=== PATIENT | female | born 1955 | race American Indian/Alaskan Native ===

== ENCOUNTER 2019-01-02 13:19 | Emergency (ER) | payer OTHER ==
[2019-01-02] MEDS ORDERED: DUONEB *Not for PRN Use IH ONE (15:12)
--- NOTE | 2019-01-02 15:13 | Emergency Department Report ---
Chief Complaint: Upper Respiratory Infection Stated Complaint: SOB/DOC ORDERED Time Seen by Provider: 01/02/19 15:08 - HPI History of Present Illness: This is a 63 y.o. female that presents to ER with SOB with increasing SOB and cough. Patient seen at [facility] several times with no improvement of symptoms. She was diagnosed with sinusitis and prescribed amoxicillin, brown, benzonatate, and eye drops. PMH: HTN - Exam Vital Signs: Vital Signs 01/02/19 14:14 Temperature 97.8 F Pulse Rate 101 H Respiratory 22 Rate Blood Pressure 134/74 O2 Sat by Pulse 94 Oximetry MSE screening note: Focused history and physical exam performed. Due to findings the following was ordered: CXR, BMP, & CBC ED Disposition for MSE Condition: Stable
[2019-01-02 15:39] LABS: Hematocrit 41.1 % (30.3-42.9); Hemoglobin 13.7 gm/dl (10.1-14.3); Mean Corpuscular HGB Conc 33 % (30-34); Mean Corpuscular Volume 88 fl (79-97); Platelet Count 360 K/mm3 (140-440); Red Cell Distribution Width 14.6 % (13.2-15.2)
[2019-01-02 16:05] LABS: Alanine Aminotransferase 14 units/L (7-56); Albumin 3.3 g/dL (3.9-5); BUN/Creatinine Ratio 10; Blood Urea Nitrogen 6 mg/dL (7-17); Calcium 9.1 mg/dL (8.4-10.2); Hemolysis Index 6
[2019-01-02 16:23] LABS: Basophils % (Manual) 0 % (0.0-1.8); Total Cells Counted 100
[2019-01-02 16:24] LABS: Anisocytosis 1+
[2019-01-02] MEDS ORDERED: DECADRON IV ONE (16:47)
[2019-01-02] MEDS ORDERED: ZOFRAN IV ONE (16:47)
[2019-01-02] MEDS ORDERED: NACL 0.9% 1000 ML 1,000 ML IV ONE (16:47)
--- NOTE | 2019-01-02 16:47 | Emergency Department Report ---
ED General Adult HPI - General Chief complaint: Upper Respiratory Infection Stated complaint: SOB/DOC ORDERED Time Seen by Provider: 01/02/19 15:08 Source: patient, family Mode of arrival: Ambulatory Limitations: No Limitations - History of Present Illness Initial comments: Patient is 63 years old female with history of hypertension. Patient presented to the ER complaining of cough, shortness of breath and congestion for the last 2 weeks. Patient stated that she she went to her primary care physician 1 week ago she was given Flonase and Afrin but symptoms have not improved. She said she went to an urgent care and she was prescribed amoxicillin that is not helping with the symptoms. Patient started to have some nausea and vomiting with her symptoms still. Patient currently denying any fever or chills. Chest pain. - Related Data Previous Rx's Medication Instructions Recorded Last Taken Type Lisinopril [Zestril TAB] 20 mg PO QDAY #30 tablet 12/18/14 Unknown Rx traMADol [Ultram 50 MG tab] 50 mg PO Q6HR PRN #14 tablet 12/18/14 Unknown Rx Cetirizine HCl [ZyrTEC] 10 mg PO QDAY #30 capsule 07/08/18 Unknown Rx Promethazine /Codeine 5 ml PO Q6H PRN #150 ml 07/08/18 Unknown Rx [Phenergan/Codeine 6.25-10 mg/5Ml] Allergies Allergy/AdvReac Type Severity Reaction Status Date / Time pineapple Allergy Dizziness Verified 12/17/14 21:05 ED Review of Systems ROS: Stated complaint: SOB/DOC ORDERED Other details as noted in HPI Comment: All other systems reviewed and negative Constitutional: denies: chills, fever ENT: congestion Respiratory: cough, shortness of breath. denies: wheezing Cardiovascular: denies: chest pain, palpitations Gastrointestinal: denies: abdominal pain, nausea, vomiting ED Past Medical Hx - Past Medical History Hx Hypertension: Yes - Social History Smoking Status: Never Smoker Substance Use Type: None - Medications Home Medications: Home Medications Medication Instructions Recorded Confirmed Last Taken Type Lisinopril [Zestril TAB] 20 mg PO QDAY #30 tablet 12/18/14 Unknown Rx traMADol [Ultram 50 MG tab] 50 mg PO Q6HR PRN #14 tablet 12/18/14 Unknown Rx Cetirizine HCl [ZyrTEC] 10 mg PO QDAY #30 capsule 07/08/18 Unknown Rx Promethazine /Codeine 5 ml PO Q6H PRN #150 ml 07/08/18 Unknown Rx [Phenergan/Codeine 6.25-10 mg/5Ml] ED Physical Exam - General Limitations: No Limitations General appearance: alert, in no apparent distress - Head Head exam: Present: atraumatic, normocephalic, normal inspection - Eye Eye exam: Present: normal appearance, PERRL - ENT ENT exam: Present: normal exam, normal orophraynx, mucous membranes moist - Neck Neck exam: Present: normal inspection. Absent: tenderness, meningismus - Respiratory Respiratory exam: Present: normal lung sounds bilaterally. Absent: respiratory distress, wheezes, rales, rhonchi, chest wall tenderness, accessory muscle use, decreased breath sounds, prolonged expiratory - Cardiovascular Cardiovascular Exam: Present: regular rate, normal rhythm, normal heart sounds - GI/Abdominal GI/Abdominal exam: Present: soft. Absent: distended, tenderness, guarding, rebound, rigid - Extremities Exam Extremities exam: Present: normal inspection, full ROM, normal capillary refill - Back Exam Back exam: Present: normal inspection, full ROM. Absent: CVA tenderness (R), CVA tenderness (L), muscle spasm, paraspinal tenderness, vertebral tenderness - Neurological Exam Neurological exam: Present: alert, oriented X3, CN II-XII intact, normal gait, reflexes normal - Skin Skin exam: Present: warm, intact, normal color ED Course Vital Signs 01/02/19 14:14 Temperature 97.8 F Pulse Rate 101 H Respiratory 22 Rate Blood Pressure 134/74 O2 Sat by Pulse 94 Oximetry ED Medical Decision Making - Lab Data Result diagrams: 01/02/19 15:29 01/02/19 15:29 - Radiology Data Radiology results: report reviewed Chest x-ray showed right middle lobe infiltrate. - Medical Decision Making Patient is 63 years old female with history of hypertension. Patient presented to the ER complaining of cough, shortness of breath and congestion for the last 2 weeks. Patient stated that she she went to her primary care physician 1 week ago she was given Flonase and Afrin but symptoms have not improved. She said she went to an urgent care and she was prescribed amoxicillin that is not helping with the symptoms. Patient started to have some nausea and vomiting with her symptoms still. Patient currently denying any fever or chills. Chest pain. Patient received 1 L of normal saline, Zofran 4 mg, 10 mg of Decadron and 1 g of Rocephin in the emergency room. Chest x-ray showed a right middle lobe infiltrate consistent with pneumonia physician Lakeisha mack 13,000. I believe patient has allergic rhinitis plus the pneumonia. I will discharge patient on Levaquin 500 mg for 7 days and advised to follow-up with her primary care physician in the next 2-3 days and to retain to the ER if symptoms have not improved. Critical care attestation.: If time is entered above; I have spent that time in minutes in the direct care of this critically ill patient, excluding procedure time. ED Disposition Clinical Impression: Pneumonia, Allergic rhinitis, Vomiting Disposition: DC- TO HOME OR SELFCARE Is pt being admited?: No Condition: Stable Instructions: Community-acquired Pneumonia (ED), Allergic Rhinitis (ED) Referrals: SYEDA JOSEPH MD [Primary Care Provider] - 3-5 Days
--- NOTE | 2019-01-02 17:17 | XRay Report ---
PROCEDURE: XR CHEST ROUTINE 2V TECHNIQUE: PA and lateral chest radiographs were obtained. HISTORY: SOB COMPARISONS: Comparison is dated July 08, 2018. FINDINGS: Heart: Normal. Mediastinum/Vessels: Normal. Lungs/Pleural space: There is increase of pulmonary interstitial prominence with a more confluent alla earance in the right middle lobe distribution along with atelectasis. No pleural effusion identified. Bony thorax: No acute osseous abnormality. IMPRESSION: Pulmonary interstitial infiltrates with atelectasis in the right middle lobe. Differentia l considerations are broad and include infectious etiologies, interstitial lung disease, and pneumoni tis or other etiologies. This document is electronically signed by Grant Purdy MD., Jan 02 2019 05:14:56 PM ET
[2019-01-02] MEDS ORDERED: ROCEPHIN/NS 1 GM/50 ML 1 GM/50 ML BAG IV ONE (18:14)
[2019-01-02 19:27] VITALS: BP 142/71
== END 2019-01-02 20:00 | disposition home or self-care (01) ==
LOC: ED 13:19
DX: J18.9 Pneumonia, unspecified organism (principal); J30.9 Allergic rhinitis, unspecified; I10 Essential (primary) hypertension; R11.10 Vomiting, unspecified; Z91.018 Allergy to other foods
CPT/HCPCS: 36415; 71046; 80053; 85007; 85025; 94640; 96361; 96365; 96375; 99284; J0696; J1100; J2405; J7030

== ENCOUNTER 2019-01-24 17:16 | Inpatient (IN) | payer OTHER ==
--- NOTE | 2019-01-24 17:49 | Emergency Department Report ---
Blank Doc - Documentation Documentation: 63 y/o female c/o of re-e,merging cough and chest ache. Cough results in post- tussive vomiting. Seen pulmonary doctor tuesday and has follow up for furhter lung evaluation.
--- NOTE | 2019-01-24 20:25 | XRay Report ---
PROCEDURE: XR CHEST ROUTINE 2V TECHNIQUE: PA and lateral chest radiographs were obtained. HISTORY: cough and post tussive vomiting COMPARISONS: Chest x-ray dated January 02, 2019. FINDINGS: There is prominence of the interstitial markings in both lungs with peribronchial thickening that is less marked when compared with the previous study. There are extensive been interval resolution of the previously demonstrated pulmonary consolidation i n the right lung base. There has been interval decrease in the pulmonary consolidation in the left vijay ng apex. There is no evidence of pneumothorax or pleural fluid collection. The cardiac silhouette appears to be normal size. The thoracic aorta is tortuous. The bony structures are notable for dextrocurvature of the thoracic spine. IMPRESSION: 1. Prominence of the interstitial markings with peribronchial thickening that is less marked compared to the previous study. 2. Appearance of interval resolution of pulmonary consolidation right lung base and interval decrease in pulmonary consolidation left lung apex. If further imaging is required, CT chest may be helpful for further evaluation. This document is electronically signed by Laly Sommer MD., January 24 2019 08:23:27 PM ET
[2019-01-24] MEDS ORDERED: NACL 0.9% 1000 ML IV ONE (20:56)
[2019-01-24] MEDS ORDERED: ZOFRAN IV ONE (20:58)
[2019-01-24] MEDS ORDERED: PROVENTIL IH ONE (20:58)
[2019-01-24] MEDS ORDERED: SOLU-Medrol IV ONE (20:58)
[2019-01-24] MEDS ORDERED: ATROVENT IH ONE (20:58)
[2019-01-24] MEDS ORDERED: ZITHROMAX 500 MG in NACL 0.9% 250ML 250 ML IV SCH (21:00)
[2019-01-24] MEDS ORDERED: ROCEPHIN/NS 2 GM/100 ML 2 GM/100 ML BAG IV SCH (21:00)
--- NOTE | 2019-01-24 21:11 | Emergency Department Report ---
ED General Adult HPI - General Chief complaint: Dyspnea/Respdistress Stated complaint: VOMITING/N/V/YOHAN Time Seen by Provider: 01/24/19 17:47 Source: patient, RN notes reviewed, old records reviewed Mode of arrival: Wheelchair Limitations: Physical Limitation - History of Present Illness Initial comments: Primary care Dr.: Dr. Jose This is a 63-year-old female. The patient is not known to this provider previously. She has a history of community-acquired pneumonia, recently diagnosed at this hospital last month, prescribed Levaquin, and she endorses compliance with Levaquin therapy. She reports that she does not smoke. She presents to the emergency room today with a complaint of cough, wheezing, shortness of breath, mucus production, nausea, vomiting, posttussive emesis. She reports that she felt around 80% better after her antibiotic therapy, but her symptoms never went away. Now, her cough, wheezing and shortness of breath are getting worse. They're worse with physical exertion, and eating, and decreased with rest. She makes no complaint of headache or neck pain, sore throat, ocular pain or discomfort, lower abdominal pain, urinary symptoms. Has nonspecific muscular discomfort. In the emergency room, she was treated supportively, and her symptoms somewhat improved. However, she was found to be hypoxic on room air, and an arterial blood gas on room air demonstrated hypoxemic respiratory failure. The patient denies DVT, pulmonary embolus risk factors. The patient was found to be tachycardic and tachypneic, and therefore met systemic inflammatory response syndrome criteria. We recommended admission for supportive care, oxygenation, and appropriate antibiotics, although this point in time, suspect bronchitis. The patient was amenable to this plan of care. Discussed results with the patient and family. The hospital physician, Dr. Mc, we'll get the patient to the medical service for new onset hypoxemic respiratory failure, and systemic inflammatory response syndrome. -: Gradual, week(s) Severity scale (0 -10): 0 Consistency: constant Improves with: rest Worsens with: movement - Related Data Previous Rx's Medication Instructions Recorded Last Taken Type Lisinopril [Zestril TAB] 20 mg PO QDAY #30 tablet 12/18/14 Unknown Rx traMADol [Ultram 50 MG tab] 50 mg PO Q6HR PRN #14 tablet 04/29/15 Unknown Rx Cetirizine HCl [ZyrTEC] 10 mg PO QDAY #30 capsule 07/08/18 Unknown Rx Promethazine /Codeine 5 ml PO Q6H PRN #150 ml 07/08/18 Unknown Rx [Phenergan/Codeine 6.25-10 mg/5Ml] Ondansetron [Zofran Odt] 4 mg PO Q8HR PRN #14 tab.rapdis 01/02/19 Unknown Rx Prednisone [predniSONE 10 mg 10 mg PO .TAPER #1 tab.ds.pk 01/02/19 Unknown Rx (6-Day Pack, 21 Tabs)] levoFLOXacin [Levaquin TAB] 500 mg PO QDAY #7 tablet 01/02/19 Unknown Rx Allergies Allergy/AdvReac Type Severity Reaction Status Date / Time pineapple Allergy Dizziness Verified 01/24/19 17:19 ED Review of Systems ROS: Stated complaint: VOMITING/N/V/YOHAN Other details as noted in HPI Constitutional: malaise, weakness Eyes: denies: eye discharge ENT: congestion Respiratory: cough, shortness of breath, SOB with exertion, SOB at rest, wheezing Cardiovascular: denies: chest pain, syncope Gastrointestinal: nausea, vomiting Genitourinary: denies: dysuria Musculoskeletal: arthralgia, myalgia Skin: denies: lesions Neurological: weakness ED Past Medical Hx - Past Medical History Hx Hypertension: Yes - Surgical History Past Surgical History?: No - Social History Smoking Status: Never Smoker Substance Use Type: None - Medications Home Medications: Home Medications Medication Instructions Recorded Confirmed Last Taken Type Lisinopril [Zestril TAB] 20 mg PO QDAY #30 tablet 12/18/14 Unknown Rx traMADol [Ultram 50 MG tab] 50 mg PO Q6HR PRN #14 tablet 12/18/14 Unknown Rx Cetirizine HCl [ZyrTEC] 10 mg PO QDAY #30 capsule 07/08/18 Unknown Rx Promethazine /Codeine 5 ml PO Q6H PRN #150 ml 07/08/18 Unknown Rx [Phenergan/Codeine 6.25-10 mg/5Ml] Ondansetron [Zofran Odt] 4 mg PO Q8HR PRN #14 tab.rapdis 01/02/19 Unknown Rx Prednisone [predniSONE 10 mg 10 mg PO .TAPER #1 tab.ds.pk 01/02/19 Unknown Rx (6-Day Pack, 21 Tabs)] levoFLOXacin [Levaquin TAB] 500 mg PO QDAY #7 tablet 01/02/19 Unknown Rx ED Physical Exam - General Limitations: No Limitations General appearance: alert, anxious, in distress, obese - Head Head exam: Present: atraumatic, normocephalic - Eye Eye exam: Present: normal appearance, EOMI. Absent: nystagmus - ENT ENT exam: Present: normal exam, normal orophraynx, mucous membranes moist, normal external ear exam - Neck Neck exam: Present: normal inspection, full ROM. Absent: tenderness, meningismus - Respiratory Respiratory exam: Present: respiratory distress, wheezes, rhonchi - Cardiovascular Cardiovascular Exam: Present: normal rhythm, tachycardia, normal heart sounds. Absent: systolic murmur, diastolic murmur, rubs, gallop - GI/Abdominal GI/Abdominal exam: Present: soft. Absent: distended, tenderness, guarding, rebound, rigid, pulsatile mass - Extremities Exam Extremities exam: Present: normal inspection, full ROM, other (2+ pulses noted in the bilateral upper, lower extremities. Compartments soft. No long bony tenderness. The pelvis is stable.). Absent: pedal edema, calf tenderness - Back Exam Back exam: Present: normal inspection, full ROM. Absent: tenderness, CVA tenderness (R), CVA tenderness (L), paraspinal tenderness, vertebral tenderness - Neurological Exam Neurological exam: Present: alert, oriented X3, other (Extraocular movements intact. Tongue midline. No facial droop. Facial sensation intact to light touch in the V1, V2, V3 distribution bilaterally. 5 and 5 strength in 4 extremities.. Sensation is intact to light touch in 4 extremities.). Absent: motor sensory deficit - Psychiatric Psychiatric exam: Present: normal affect, normal mood - Skin Skin exam: Present: warm, dry, intact, normal color. Absent: rash ED Course Vital Signs 01/24/19 01/24/19 01/24/19 17:47 20:40 21:27 Temperature 98.7 F 98 F Pulse Rate 108 H 115 H Pulse Rate [ 109 H Posterior Bilateral Throughout] Respiratory 16 28 H Rate Respiratory 22 Rate [Posterior Bilateral Throughout] Blood Pressure 129/72 174/114 [Left] O2 Sat by Pulse 94 88 Oximetry ED Medical Decision Making - Lab Data Result diagrams: 01/24/19 21:10 01/24/19 21:10 Vital Signs 01/24/19 01/24/19 17:47 20:40 Temperature 98.7 F 98 F Pulse Rate 108 H 115 H Respiratory 16 28 H Rate Blood Pressure 129/72 174/114 [Left] O2 Sat by Pulse 94 88 Oximetry - EKG Data -: EKG Interpreted by [place] EKG shows normal: sinus rhythm Rate: tachycardia - EKG Data 01/24/19 22:00 This is a sinus tachycardia, 104 bpm, normal axis, QTC prolonged, not having chest pain, abnormal EKG, this EKG is not consistent with ST elevation myocardial infarction. - Radiology Data Radiology results: report reviewed, image reviewed Print Report Referring Physician: ALEXYS CARRASCO Patient Name: ADA GATES Date of : 1955 Sex: Female Report Date: 2019-01-24 Report Status: [place] [address] XRay Report Signed Patient: ADA GATES MR# : [id number] : 1955 Acct:[id number] Age/Sex: 63 / F ADM Date: 01/24/19 Loc: ED Attending Dr: Ordering Physician: SACHIN BUSBY Date of Service: 01/24/19 Procedure(s): XR chest routine 2V Accession Number(s): [id number] cc: SACHIN BUSBY Fluoro Time In Minutes: PROCEDURE: XR CHEST ROUTINE 2V TECHNIQUE: PA and lateral chest radiographs were obtained. HISTORY: cough and post tussive vomiting COMPARISONS: Chest x-ray dated January 02, 2019. FINDINGS: There is prominence of the interstitial markings in both lungs with peribronchial thickening that is less marked when compared with the previous study. There are extensive been interval resolution of the previously demonstrated pulmonary consolidation in the right lung base. There has been interval decrease in the pulmonary consolidation in the left lung apex. There is no evidence of pneumothorax or pleural fluid collection. The cardiac silhouette appears to be normal size. The thoracic aorta is tortuous. The bony structures are notable for dextrocurvature of the thoracic spine. IMPRESSION: 1. Prominence of the interstitial markings with peribronchial thickening that is less marked compared to the previous study. 2. Appearance of interval resolution of pulmonary consolidation right lung base and interval decrease in pulmonary consolidation left lung apex. If further imaging is required, CT chest may be helpful for further evaluation. This document is electronically signed by Laly Sommer MD., January 24 2019 08:23:27 PM ET Transcribed By: ED Dictated By: LALY SOMMER MD Electronically Authenticated By: LALY SOMMER MD Signed Date/Time: 01/24/192024 - Medical Decision Making Differential diagnosis, including but not limited to: Pneumonia, bronchitis, respiratory failure Assessment and plan: 63-year-old female, no pulmonary embolus or DVT risk factors, low risk by well's criteria, with systemic inflammatory response syndrome, and hypoxemic respiratory failure, most likely secondary to bronchitis. Patient will be treated according to the sepsis pathway, with appropriate IV fluids, antibiotics, and supplemental oxygen. She is clinically improved at this point in time. She is amenable to hospitalization. Critical care attestation.: If time is entered above; I have spent that time in minutes in the direct care of this critically ill patient, excluding procedure time. ED Disposition Clinical Impression: SIRS (systemic inflammatory response syndrome), Acute hypoxemic respiratory failure Disposition: -09 OP ADMIT IP TO THIS HOSP Is pt being admited?: Yes Condition: Good Referrals: SYEDA JOSEPH MD [Primary Care Provider] - 3-5 Days
[2019-01-24 21:34] LABS: Hematocrit 38.8 % (30.3-42.9); Hemoglobin 12.9 gm/dl (10.1-14.3); Mean Corpuscular HGB Conc 33 % (30-34); Mean Corpuscular Volume 88 fl (79-97); Platelet Count 330 K/mm3 (140-440); Red Blood Count 4.43 M/mm3 (3.65-5.03); Red Cell Distribution Width 15.4 % (13.2-15.2)
[2019-01-24 21:45] LABS: INR 1.05 (0.87-1.13)
[2019-01-24 21:46] LABS: Partial Thromboplastin Time 31.5 Sec. (24.2-36.6)
[2019-01-24 21:48] LABS: Alanine Aminotransferase 12 units/L (7-56); Albumin 3.4 g/dL (3.9-5); BUN/Creatinine Ratio 16; Blood Urea Nitrogen 13 mg/dL (7-17); Calcium 8.9 mg/dL (8.4-10.2)
[2019-01-24] MEDS ORDERED: K-DUR PO ONE (21:53)
[2019-01-24 22:12] LABS: RBC Morphology Normal; Total Cells Counted 100
[2019-01-24] MEDS: KCL 10MEQ/100ML 10 MEQ/100 ML BAG IV SCH (22:13)
[2019-01-24] MEDS ORDERED: TYLENOL PO PRN (22:35)
[2019-01-24] MEDS ORDERED: ZOFRAN IV PRN (22:35)
[2019-01-24] MEDS ORDERED: SODIUM CHLORIDE FLUSH SYRINGE 10 ML IV PRN (22:35)
--- NOTE | 2019-01-24 22:46 | History and Physical Report ---
History of Present Illness Date of examination: 01/24/19 History of present illness: 63 -year-old woman with hypertension comes to the emergency room with complaints of cough or shortness of breath 3 months. She's had 2 rounds of antibiotics, placed on steroids and given inhalers, her symptoms improved slightly. Over the last 4 days coughis Productive of yellow phlegm, also had rhinorrhea. He saw a cigarette lighter repairer on Tuesday, he sounds as if she is scheduled to have PFTs done. 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 Status post recent treatment for pneumonia Review of systems Constitutional: no weight loss, chills, fever Ears, eyes, nose, mouth and throat: no nasal congestion, no nasal discharge, no sinus pressure, no vision change, no red eye. Neck: No neck pain or rigidity. Cardiovascular: no palpitations, chest pain Respiratory:+ cough, shortness of breath Gastrointestinal: no hematochezia, abdominal pain Genitourinary : no frequency , no hematuria Musculoskeletal: no joint swelling or muscle ache Integumentary: no rash, no pruritis Neurological: no parathesias, no focal weakness Endocrine: no cold or heat intolerance, no polyuria or polydipsia Hematologic/Lymphatic: no easy bruising, no easy bleeding, no gland swelling Allergic/Immunologic: no urticaria, no angioedema. PAST MEDICAL HISTORY:hypertension PAST SURGICAL HISTORY: None SOCIAL HISTORY: Denies alcohol, drugs, tobacco FAMILY HISTORY: Hypertension Medications and Allergies Allergies Allergy/AdvReac Type Severity Reaction Status Date / Time pineapple Allergy Dizziness Verified 01/24/19 17:19 Home Medications Medication Instructions Recorded Confirmed Last Taken Type Ondansetron [Zofran Odt] 4 mg PO Q8HR PRN #14 tab.rapdis 01/02/19 01/24/19 Unknown Rx ALBUTEROL Inhaler (OR & NICU) 1 puff IH Q8HR PRN 01/24/19 01/24/19 Unknown History [ProAir HFA Inhaler] Benzonatate [Tessalon Perles] 100 mg PO Q8HR PRN 01/24/19 01/24/19 Unknown History Montelukast [Singulair] 1 tab PO HS 01/24/19 01/24/19 Unknown History Omeprazole 20 mg PO DAILY 01/24/19 01/24/19 Unknown History amLODIPine [Norvasc] 5 mg PO DAILY 01/24/19 01/24/19 Unknown History Active Meds: Active Medications Acetaminophen (Tylenol) 650 mg PO Q4H PRN PRN Reason: Pain MILD(1-3)/Fever >100.5/PACE Albuterol/Ipratropium (Duoneb *Not For Prn Use*) 1 ampul IH Q6HRT ALLEN Enoxaparin Sodium (Lovenox) 30 mg SUB-Q QDAY ALLEN Potassium Chloride (Kcl 10meq/100ml) 10 meq in 100 mls @ 100 mls/hr IV Q1H ALLEN Stop: 01/24/19 23:59 Last Admin: 01/24/19 22:13 Dose: 100 mls/hr Documented by: Methylprednisolone Sodium Succinate (Solu-Medrol) 125 mg IV Q6HR ALLEN Ondansetron HCl (Zofran) 4 mg IV Q8H PRN PRN Reason: Nausea And Vomiting Sodium Chloride (Sodium Chloride Flush Syringe 10 Ml) 10 ml IV BID ALLEN Sodium Chloride (Sodium Chloride Flush Syringe 10 Ml) 10 ml IV PRN PRN PRN Reason: LINE FLUSH Exam - Physical Exam Narrative exam: General Apperance: The patient lying in bed, breathing comfortable HEENT: Normocephalic, atraumatic. Pupils equally round and reactive to light, EOMI, no sclericterus or JVD or thyromegaly or nodule. , no carotid bruit, mucous membranes moist, no exudate or erythema Heart: S1-S2, regular is rhythm Lungs:decrease breath sounds bilaterally, breathing comfortable Abdomen: Positive bowel sounds, soft, nontender, nondistended, no organomegaly Extremities: No edema cyanosis clubbing Skin: no rash, nodule, warm and dry Neuro: cranial nerves 2-12 intact, speech is fluent, motor/sensory intact - Constitutional Vitals: Temp Pulse Resp BP Pulse Ox 98 F 115 H 24 174/114 88 01/24/19 20:40 01/24/19 21:41 01/24/19 21:41 01/24/19 20:40 01/24/19 20:40 Results - Labs CBC & Chem 7: 01/24/19 21:10 01/24/19 21:10 Labs: Abnormal lab results 0601/24/19 01/24/19 Range/Units 21:10 21:10 21:28 RDW 15.4 H (13.2-15.2) % Monocytes % (Manual) 8.0 H (0.0-7.3) % Eosinophils % (Manual) 22.0 H (0.0-4.3) % Eosinophils # (Manual) 1.9 H (0.0-0.4) K/mm3 POC ABG pO2 56 L (80-105) Potassium 3.4 L (3.6-5.0) mmol/L Glucose 109 H (65-100) mg/dL Alkaline Phosphatase 205 H (35-129) units/L Albumin 3.4 L (3.9-5) g/dL - Imaging and Cardiology Chest x-ray: report reviewed Assessment and Plan Assessment Acute bronchitis with hypoxemia Hypertension Plan Start high-dose steroids, nebulization treatments, IV Levaquin Consult pulmonary, add tessalon perles Continue appropriate out patient medications DVT prophalaxis
[2019-01-24] MEDS ORDERED: NACL 0.9% 250ML 500 ML ONE (23:20)
[2019-01-24] MEDS ORDERED: KCL 10MEQ/100ML 10 MEQ/100 ML BAG IV ONE (23:35)
[2019-01-25] MEDS ORDERED: SOLU-Medrol IV SCH
[2019-01-25] MEDS: KCL 10MEQ/100ML 10 MEQ/100 ML BAG IV SCH (01:00)
[2019-01-25] MEDS: DUONEB *Not for PRN Use IH SCH ×4 (01:58→20:05)
[2019-01-25] MEDS: SOLU-Medrol IV SCH ×4 (02:41→23:20)
[2019-01-25] MEDS: TESSALON PERLES PO SCH ×3 (06:06→23:20)
[2019-01-25 06:13] LABS: Basophils % (Auto) 0.5 % (0.0-1.8); Eosinophils % (Auto) 0.4 % (0.0-4.3); Hematocrit 37.1 % (30.3-42.9); Hemoglobin 12.6 gm/dl (10.1-14.3); Lymphocytes # (Auto) 0.5 K/mm3 (1.2-5.4); Lymphocytes % (Auto) 8.7 % (13.4-35.0); Mean Corpuscular HGB Conc 34 % (30-34); Mean Corpuscular Volume 88 fl (79-97); Monocytes # (Auto) 0.1 K/mm3 (0.0-0.8); Monocytes % (Auto) 0.9 % (0.0-7.3); Platelet Count 292 K/mm3 (140-440); Red Blood Count 4.24 M/mm3 (3.65-5.03); Red Cell Distribution Width 15.5 % (13.2-15.2)
[2019-01-25 06:38] LABS: BUN/Creatinine Ratio 13; Blood Urea Nitrogen 9 mg/dL (7-17); Calcium 8.7 mg/dL (8.4-10.2); Hemolysis Index 2
[2019-01-25 08:37] LABS: Bilirubin,Urine NEG (Negative); Blood,Urine NEG (Negative); Color,Urine Yellow (Yellow); Mucus,Urine FEW /HPF; Protein,Urine <15 mg/dL mg/dL (Negative); Urobilinogen,Urine < 2.0 mg/dL (<2.0); WBC,Urine < 1.0 /HPF (0.0-6.0)
[2019-01-25] MEDS ORDERED: LOVENOX SUB-Q SCH (10:00)
[2019-01-25] MEDS ORDERED: NON-FORMULARY (Omeprazole [Omeprazole] 20 MG) PO SCH (10:00)
[2019-01-25] MEDS ORDERED: ATIVAN IV ONE (10:00)
[2019-01-25] MEDS: NORVASC PO SCH (11:10)
[2019-01-25] MEDS: LOVENOX SUB-Q SCH (11:10)
[2019-01-25] MEDS: PROTONIX PO SCH (11:11)
[2019-01-25] MEDS: SODIUM CHLORIDE FLUSH SYRINGE 10 ML IV SCH ×2 (11:12→23:21)
--- NOTE | 2019-01-25 12:05 | Consultation ---
History of Present Illness Consult date: 01/25/19 Requesting physician: HARJINDER GIBSON Reason for consult: hypoxemia History of present illness: 63 y/o female, not currently in room as she is down for CT of chest admitted with cough and persistent shortness of breath. Daughters in room state that shortness of breath is only present with excessive coughing, and coughing has been going on for several weeks. has seen several docs and thought this could be allergy related so started on antihistamine and nasal steroids with minimal to no improvement. Sent here yesterday by urgent care. Room air ABG showed hypoxemia, mild so admitted. Only allergy is pineapple. Never a smoker. Medications and Allergies Allergies Allergy/AdvReac Type Severity Reaction Status Date / Time pineapple Allergy Dizziness Verified 01/24/19 17:19 Home Medications Medication Instructions Recorded Confirmed Last Taken Type Ondansetron [Zofran ODT TAB] 4 mg PO Q8HR PRN #14 tab.rapdis 01/02/19 01/24/19 Unknown Rx Benzonatate [Tessalon Perles] 100 mg PO Q8HR PRN 01/24/19 01/24/19 Unknown History ALBUTEROL Inhaler (OR & NICU) 1 puff IH Q8HR PRN #1 inha 01/26/19 Unknown Rx [ProAir HFA Inhaler] Acetaminophen [Acetaminophen TAB] 325 mg PO Q4H PRN tablet 01/26/19 Unknown Rx Ipratropium/Albuterol Sulfate 1 ampul IH Q4H PRN #1 ampul.neb 01/26/19 Unknown Rx [DUONEB *Not for PRN Use*] Montelukast [Singulair] 10 mg PO HS #30 tablet 01/26/19 Unknown Rx Pantoprazole [Protonix TAB] 40 mg PO QDAY #30 tablet.dr 01/26/19 Unknown Rx amLODIPine [Norvasc] 5 mg PO DAILY #30 01/26/19 01/24/19 Unknown Rx cefUROXime [Ceftin] 500 mg PO BID #10 tablet 01/26/19 Unknown Rx methylPREDNISolone [Medrol 4MG 1 dose PO DAILY #1 tab.ds.pk 01/26/19 Unknown Rx DOSEPAK (21 tabs)] Active Meds: Active Medications Acetaminophen (Tylenol) 650 mg PO Q4H PRN PRN Reason: Pain MILD(1-3)/Fever >100.5/PACE Last Admin: 01/25/19 01:28 Dose: 650 mg Documented by: Albuterol/Ipratropium (Duoneb *Not For Prn Use*) 1 ampul IH Q6HRT [facility] Last Admin: 01/25/19 10:06 Dose: 1 ampul Documented by: Amlodipine Besylate (Norvasc) 5 mg PO DAILY [facility] Last Admin: 01/25/19 11:10 Dose: 5 mg Documented by: Benzonatate (Tessalon Perles) 100 mg PO Q8HR [facility] Last Admin: 01/25/19 06:06 Dose: 100 mg Documented by: Enoxaparin Sodium (Lovenox) 40 mg SUB-Q QDAY@1000 [facility] Last Admin: 01/25/19 11:10 Dose: 40 mg Documented by: Methylprednisolone Sodium Succinate (Solu-Medrol) 125 mg IV Q6H [facility] Last Admin: 01/25/19 11:11 Dose: 125 mg Documented by: Montelukast Sodium (Singulair) 10 mg PO HS [facility] Ondansetron HCl (Zofran) 4 mg IV Q8H PRN PRN Reason: Nausea And Vomiting Pantoprazole Sodium (Protonix) 20 mg PO QDAY [facility] Last Admin: 01/25/19 11:11 Dose: 20 mg Documented by: Sodium Chloride (Sodium Chloride Flush Syringe 10 Ml) 10 ml IV BID [facility] Last Admin: 01/25/19 11:12 Dose: 10 ml Documented by: Sodium Chloride (Sodium Chloride Flush Syringe 10 Ml) 10 ml IV PRN PRN PRN Reason: LINE FLUSH Physical Examination Vital signs: Vital Signs Temp Pulse Resp BP Pulse Ox 98.7 F 108 H 16 129/72 94 01/24/19 17:47 01/24/19 17:47 01/24/19 17:47 01/24/19 17:47 01/24/19 17:47 General appearance: no acute distress, alert Eyes: non-icteric ENT: oropharynx moist Effort: normal Ascultation: Bilateral: clear Percussion: Bilateral: not dull Tactile fremitus: Bilateral: normal Cardiovascular: regular rate and rhythm Gastrointestinal: normoactive bowel sounds, non-tender Extremities: no edema, pink and warm, pulses normal Results - Laboratory Findings CBC and BMP: 01/26/19 06:57 01/26/19 06:57 ABG POC ABG pH 7.373 (7.35-7.45) 01/24/19 21:28 POC ABG pCO2 44.4 (35-45) 01/24/19 21:28 POC ABG pO2 56 (80-105) L 01/24/19 21:28 POC ABG HCO3 25.9 (22-26 mml/L) 01/24/19 21:28 POC ABG Total CO2 27 (23-27mmol/L) 01/24/19 21:28 POC ABG O2 Sat 88 01/24/19 21:28 PT/INR, D-dimer PT 14.4 Sec. (12.2-14.9) 01/24/19 21:10 INR 1.05 (0.87-1.13) 01/24/19 21:10 Abnormal lab findings: Abnormal Labs 01/24/19 01/24/19 01/24/19 21:10 21:10 21:28 RDW 15.4 H Lymph % (Auto) Lymph # Seg Neutrophils % Monocytes % (Manual) 8.0 H Eosinophils % (Manual) 22.0 H Eosinophils # (Manual) 1.9 H POC ABG pO2 56 L Potassium 3.4 L Glucose 109 H Alkaline Phosphatase 205 H Albumin 3.4 L 01/25/19 01/25/19 05:29 05:29 RDW 15.5 H Lymph % (Auto) 8.7 L Lymph # 0.5 L Seg Neutrophils % 89.5 H Monocytes % (Manual) Eosinophils % (Manual) Eosinophils # (Manual) POC ABG pO2 Potassium Glucose 168 H Alkaline Phosphatase Albumin Assessment and Plan 1. Follow up CT 2. Need to obtain neurology consult and possible CT of head vs CT of dedicated sinuses. Based upon history in the room, lots of sinus congestion and drainage with headache and eyelid swelling. Would be concerned about possible blockage. Neurology might could tell us if CT vs MRI is better based upon her symptoms 3. Will examine once back from CT
--- NOTE | 2019-01-25 13:55 | Cat Scan Report ---
PROCEDURE: CT CHEST WO/W CON TECHNIQUE: Computerized axial tomography of the chest was performed before and after the IV injectio n of iodinated nonionic contrast. CT DOSE LENGTH PRODUCT: 1579.1 mGycm HISTORY: sob, cough, ?pneumonia COMPARISONS: None . FINDINGS: Heart and pericardium: Normal. Thoracic aorta: Normal. Pulmonary vasculature: Normal. Lymph nodes: No enlarged thoracic lymph nodes. Lungs: Mild diffuse peribronchial thickening. No focal consolidation. Minimal ground glass opacities at the bilateral lung bases, likely reflective of atelectasis. Pleural space: No effusion, thickening, or pneumothorax. Musculoskeletal structures: No significant abnormality. Upper abdominal structures: No significant abnormality. IMPRESSION: Mild diffuse peribronchial thickening, which may represent bronchitis. Minimal groundglass opacities at the bilateral lung bases that may reflect atelectasis, inflammation, or infection. This document is electronically signed by Karyn Escamilla MD., January 25 2019 01:52:49 PM ET
--- NOTE | 2019-01-25 14:51 | Progress Note ---
Assessment and Plan Assessment and plan: Patient is a 63 yo woman with a history of hypertension who presented to [facility] ED with sob, cough. * CT chest with and without contrast IMPRESSION: Mild diffuse peribronchial thickening, which may represent bronchitis. Minimal groundglass opacities at the bilateral lung bases that may reflect atelectasis, inflammation, or infection. Acute hypoxic respiratory failure, pO2 was only 56: treat with O2, CT chest done using IV ativan for sedation because patient is extremely claustrophobic Sepsis with Acute bronchitis as evident by HR 115, RR 24 poa: treat with ABX, nebs, iv steroids and follow cultures Accelerated hypertension with Urgency: iv hydralazine prn, continue norvasc, low salt diet Hypokalemia: replete and monitor closely Sinus Disorder/Eyelid swelling: CT facial bones without contrast would be the best choice here as patient is extremely claustrophobic and i had to pre- medicate with Ativan 1mg IV x 1; therefore, closed MRI would not be best; would wait to do CT face as patient just had sedation for the CT chest, so treat symptomatically for now DVT ppx reviewed on sq Lovenox Disposition: continue inpatient care, anticipate d/c in 1-3 days, once hypoxic resolves full code CCT 32 minutes History Interval history: Patient was seen and examined. Follow-up on current diagnosis Pneumonia, SOB is less. Overnight uneventful. Patient denies any chest pain, nausea/vomiting or severe headaches. Imaging, nursing note, chart, labs and old chart reviewed. Discussed with patient. Hospitalist Physical - Physical exam Narrative exam: Gen: WDWN, NAD, Awake, Alert, Orientated HEENT: NCAT, EOMI, PERRL, OP Clear Neck: supple, no adenopathy, no thyromegaly, no JVD CVS/Heart: RRR, normal S1S2, pulses present bilaterally Chest/Lungs: bibasilar crackles, Symmetrical chest expansion, good air entry bilaterally GI/Abdomen: soft, NTND, good bowel sounds, no guarding or rebound /Bladder: no suprapubic tenderness, no CVA or paraspinal tenderness Extermity/Skin: no c/c/e, no obvious rash MSK: FROM x 4 Neuro: CN 2-12 grossly intact, no new focal deficits Psych: calm - Constitutional Vitals: Temp Pulse Resp BP Pulse Ox 98.4 F 94 H 20 141/86 92 01/25/19 12:39 01/25/19 12:39 01/25/19 12:39 01/25/19 12:39 01/25/19 12:39 Results - Labs CBC & Chem 7: 01/25/19 05:29 01/25/19 05:29 Labs: Laboratory Last Values WBC 6.0 K/mm3 (4.5-11.0) 01/25/19 05:29 RBC 4.24 M/mm3 (3.65-5.03) 01/25/19 05:29 Hgb 12.6 gm/dl (10.1-14.3) 01/25/19 05:29 Hct 37.1 % (30.3-42.9) 01/25/19 05:29 MCV 88 fl (79-97) 01/25/19 05:29 MCH 30 pg (28-32) 01/25/19 05:29 MCHC 34 % (30-34) 01/25/19 05:29 RDW 15.5 % (13.2-15.2) H 01/25/19 05:29 Plt Count 292 K/mm3 (140-440) 01/25/19 05:29 Lymph % (Auto) 8.7 % (13.4-35.0) L 01/25/19 05:29 [place] % (Auto) 0.9 % (0.0-7.3) 01/25/19 05:29 Eos % (Auto) 0.4 % (0.0-4.3) 01/25/19 05:29 Baso % (Auto) 0.5 % (0.0-1.8) 01/25/19 05:29 Lymph # 0.5 K/mm3 (1.2-5.4) L 01/25/19 05:29 [place] # 0.1 K/mm3 (0.0-0.8) 01/25/19 05:29 Eos # 0.0 K/mm3 (0.0-0.4) 01/25/19 05:29 Baso # 0.0 K/mm3 (0.0-0.1) 01/25/19 05:29 Add Manual Diff Complete 01/24/19 21:10 Total Counted 100 01/24/19 21:10 Seg Neutrophils % 89.5 % (40.0-70.0) H 01/25/19 05:29 Seg Neuts % (Manual) 52.0 % (40.0-70.0) 01/24/19 21:10 0 % 01/24/19 21:10 17.0 % (13.4-35.0) 01/24/19 21:10 Reactive Lymphs % (Man) 0 % 01/24/19 21:10 8.0 % (0.0-7.3) H 01/24/19 21:10 22.0 % (0.0-4.3) H 01/24/19 21:10 1.0 % (0.0-1.8) 01/24/19 21:10 0 % 01/24/19 21:10 0 % 01/24/19 21:10 0 % 01/24/19 21:10 0 % 01/24/19 21:10 Nucleated RBC % Not Reportable 01/24/19 21:10 Seg Neutrophils # 5.4 K/mm3 (1.8-7.7) 01/25/19 05:29 Seg Neutrophils # Man 4.4 K/mm3 (1.8-7.7) 01/24/19 21:10 Band Neutrophils # 0.0 K/mm3 01/24/19 21:10 1.4 K/mm3 (1.2-5.4) 01/24/19 21:10 Abs React Lymphs (Man) 0.0 K/mm3 01/24/19 21:10 0.7 K/mm3 (0.0-0.8) 01/24/19 21:10 1.9 K/mm3 (0.0-0.4) H 01/24/19 21:10 0.1 K/mm3 (0.0-0.1) 01/24/19 21:10 0.0 K/mm3 01/24/19 21:10 0.0 K/mm3 01/24/19 21:10 0.0 K/mm3 01/24/19 21:10 Blast Cells # 0.0 K/mm3 01/24/19 21:10 WBC Morphology Not Reportable 01/24/19 21:10 Hypersegmented Neuts Not Reportable 01/24/19 21:10 Hyposegmented Neuts Not Reportable 01/24/19 21:10 Hypogranular Neuts Not Reportable 01/24/19 21:10 Not Reportable 01/24/19 21:10 Not Reportable 01/24/19 21:10 Not Reportable 01/24/19 21:10 Not Reportable 01/24/19 21:10 Not Reportable 01/24/19 21:10 Not Reportable 01/24/19 21:10 Not Reportable 01/24/19 21:10 Not Reportable 01/24/19 21:10 Plt Clumps, EDTA Not Reportable 01/24/19 21:10 Not Reportable 01/24/19 21:10 Not Reportable 01/24/19 21:10 Not Reportable 01/24/19 21:10 Plt Morphology Comment Not Reportable 01/24/19 21:10 RBC Morphology Normal 01/24/19 21:10 Dimorphic RBCs Not Reportable 01/24/19 21:10 Not Reportable 01/24/19 21:10 Not Reportable 01/24/19 21:10 Not Reportable 01/24/19 21:10 Not Reportable 01/24/19 21:10 Not Reportable 01/24/19 21:10 Not Reportable 01/24/19 21:10 Not Reportable 01/24/19 21:10 Not Reportable 01/24/19 21:10 Not Reportable 01/24/19 21:10 Not Reportable 01/24/19 21:10 Not Reportable 01/24/19 21:10 Not Reportable 01/24/19 21:10 Not Reportable 01/24/19 21:10 Not Reportable 01/24/19 21:10 Not Reportable 01/24/19 21:10 Not Reportable 01/24/19 21:10 Not Reportable 01/24/19 21:10 Not Reportable 01/24/19 21:10 Not Reportable 01/24/19 21:10 Acanthocytes (Spur) Not Reportable 01/24/19 21:10 Rouleaux Not Reportable 01/24/19 21:10 Not Reportable 01/24/19 21:10 Not Reportable 01/24/19 21:10 Not Reportable 01/24/19 21:10 Not Reportable 01/24/19 21:10 Hem Pathologist Commnt No 01/24/19 21:10 PT 14.4 Sec. (12.2-14.9) 01/24/19 21:10 INR 1.05 (0.87-1.13) 01/24/19 21:10 APTT 31.5 Sec. (24.2-36.6) 01/24/19 21:10 POC ABG pH 7.373 (7.35-7.45) 01/24/19 21:28 POC ABG pCO2 44.4 (35-45) 01/24/19 21:28 POC ABG pO2 56 (80-105) L 01/24/19 21:28 POC ABG HCO3 25.9 (22-26 mml/L) 01/24/19 21:28 POC ABG Total CO2 27 (23-27mmol/L) 01/24/19 21:28 POC ABG O2 Sat 88 01/24/19 21:28 POC ABG Base Excess 1 ((-2) - (+3)mmol/L) 01/24/19 21:28 21 % 01/24/19 21:28 Sodium 143 mmol/L (137-145) 01/25/19 05:29 Potassium 3.8 mmol/L (3.6-5.0) 01/25/19 05:29 Chloride 106.8 mmol/L (98-107) 01/25/19 05:29 Carbon Dioxide 23 mmol/L (22-30) 01/25/19 05:29 17 mmol/L 01/25/19 05:29 BUN 9 mg/dL (7-17) 01/25/19 05:29 0.7 mg/dL (0.7-1.2) 01/25/19 05:29 Estimated GFR > 60 ml/min 01/25/19 05:29 13 % 01/25/19 05:29 Glucose 168 mg/dL (65-100) H 01/25/19 05:29 Lactic Acid 1.20 mmol/L (0.7-2.0) 01/24/19 23:16 Calcium 8.7 mg/dL (8.4-10.2) 01/25/19 05:29 Magnesium 2.10 mg/dL (1.7-2.3) 01/24/19 21:10 0.40 mg/dL (0.1-1.2) 01/24/19 21:10 AST 14 units/L (5-40) 01/24/19 21:10 ALT 12 units/L (7-56) 01/24/19 21:10 205 units/L (35-129) H 01/24/19 21:10 92 units/L (30-135) 01/24/19 21:10 < 0.010 ng/mL (0.00-0.029) 01/24/19 21:10 8.2 g/dL (6.3-8.2) 01/24/19 21:10 3.4 g/dL (3.9-5) L 01/24/19 21:10 0.7 % 01/24/19 21:10 Yellow (Yellow) 01/25/19 07:52 Clear (Clear) 01/25/19 07:52 5.0 (5.0-7.0) 01/25/19 07:52 Ur Specific [place] 1.017 (1.003-1.030) 01/25/19 07:52 <15 mg/dl mg/dL (Negative) 01/25/19 07:52 Neg mg/dL (Negative) 01/25/19 07:52 Neg mg/dL (Negative) 01/25/19 07:52 Neg (Negative) 01/25/19 07:52 Neg (Negative) 01/25/19 07:52 Neg (Negative) 01/25/19 07:52 < 2.0 mg/dL (<2.0) 01/25/19 07:52 Ur Leukocyte Esterase Neg (Negative) 01/25/19 07:52 < 1.0 /HPF (0.0-6.0) 01/25/19 07:52 2.0 /HPF (0.0-6.0) 01/25/19 07:52 U Epithel Cells (Auto) 1.0 /HPF (0-13.0) 01/25/19 07:52 Few /HPF 01/25/19 07:52 Active Medications - Current Medications Current Medications: Generic Name Dose Route Start Last Admin Trade Name Freq PRN Reason Stop Dose Admin Acetaminophen 650 mg 01/24/19 22:35 01/25/19 01:28 Tylenol PO 650 mg Q4H PRN Administration Pain MILD(1-3)/Fever >100.5/PACE Albuterol/Ipratropium 1 ampul 01/25/19 02:00 01/25/19 10:06 Duoneb *Not For Prn Use* IH 1 ampul Q6HRT [facility] Administration Amlodipine Besylate 5 mg 01/25/19 10:00 01/25/19 11:10 Norvasc PO 5 mg DAILY [facility] Administration Benzonatate 100 mg 01/25/19 06:00 01/25/19 13:48 Tessalon Perles PO 100 mg Q8HR [facility] Administration Enoxaparin Sodium 40 mg 01/25/19 10:00 01/25/19 11:10 Lovenox SUB-Q 40 mg QDAY@1000 [facility] Administration Methylprednisolone Sodium Succinate 125 mg 01/25/19 03:00 01/25/19 11:11 Solu-Medrol IV 125 mg Q6H [facility] Administration Montelukast Sodium 10 mg 01/25/19 22:00 Singulair PO HS [facility] Ondansetron HCl 4 mg 01/24/19 22:35 Zofran IV Q8H PRN Nausea And Vomiting Pantoprazole Sodium 20 mg 01/25/19 10:00 01/25/19 11:11 Protonix PO 20 mg QDAY [facility] Administration Sodium Chloride 10 ml 01/25/19 10:00 01/25/19 11:12 Sodium Chloride Flush Syringe 10 Ml IV 10 ml BID [facility] Administration Sodium Chloride 10 ml 01/24/19 22:35 Sodium Chloride Flush Syringe 10 Ml IV PRN PRN LINE FLUSH
[2019-01-25] MEDS ORDERED: SINGULAIR PO SCH (22:00)
[2019-01-26] MEDS: DUONEB *Not for PRN Use IH SCH ×4 (01:37→13:45)
[2019-01-26] MEDS: TESSALON PERLES PO SCH ×2 (06:18→14:41)
[2019-01-26] MEDS: SOLU-Medrol IV SCH ×3 (06:19→15:29)
[2019-01-26 08:09] LABS: Hematocrit 36.4 % (30.3-42.9); Hemoglobin 12.1 gm/dl (10.1-14.3); Mean Corpuscular HGB Conc 33 % (30-34); Mean Corpuscular Volume 87 fl (79-97); Platelet Count 336 K/mm3 (140-440); Red Blood Count 4.21 M/mm3 (3.65-5.03); Red Cell Distribution Width 15.7 % (13.2-15.2)
--- NOTE | 2019-01-26 08:32 | Progress Note ---
Assessment and Plan Assessment and plan: Patient is a 63 yo woman with a history of hypertension who presented to [facility] ED with sob, cough. * CT chest with and without contrast IMPRESSION: Mild diffuse peribronchial thickening, which may represent bronchitis. Minimal groundglass opacities at the bilateral lung bases that may reflect atelectasis, inflammation, or infection. Acute hypoxic respiratory failure, pO2 was only 56: treat with O2, CT chest done using IV ativan for sedation because patient is extremely claustrophobic Sepsis with Acute bronchitis as evident by HR 115, RR 24 poa: treat with ABX, nebs, iv steroids and follow cultures Accelerated hypertension with Urgency: iv hydralazine prn, continue norvasc, low salt diet Hypokalemia: replete and monitor closely Sinus Disorder/Eyelid swelling: CT facial bones without contrast would be the best choice here as patient is extremely claustrophobic and i had to pre- medicate with Ativan 1mg IV x 1; therefore, closed MRI would not be best; would wait to do CT face as patient just had sedation for the CT chest, so treat symptomatically for now DVT ppx reviewed on sq Lovenox Leukocytosis, due to iv steroids Disposition: continue inpatient care, anticipate once hypoxic resolves and cleared by Pulmonology, try to wean off O2 today and wean down iv steroids full code History Interval history: Patient was seen and examined. Follow-up on current diagnosis Pneumonia, SOB is less. Overnight uneventful. Patient denies any chest pain, nausea/vomiting or severe headaches. Imaging, nursing note, chart, labs and old chart reviewed. Discussed with patient. Hospitalist Physical - Physical exam Narrative exam: Gen: WDWN, NAD, Awake, Alert, Orientated HEENT: NCAT, EOMI, PERRL, OP Clear Neck: supple, no adenopathy, no thyromegaly, no JVD CVS/Heart: RRR, normal S1S2, pulses present bilaterally Chest/Lungs: bibasilar crackles, Symmetrical chest expansion, good air entry bilaterally GI/Abdomen: soft, NTND, good bowel sounds, no guarding or rebound /Bladder: no suprapubic tenderness, no CVA or paraspinal tenderness Extermity/Skin: no c/c/e, no obvious rash MSK: FROM x 4 Neuro: CN 2-12 grossly intact, no new focal deficits Psych: calm - Constitutional Vitals: Temp Pulse Resp BP Pulse Ox 98.4 F 90 20 140/75 97 01/26/19 05:48 01/26/19 07:58 01/26/19 07:58 01/26/19 05:48 01/26/19 07:46 Results - Labs CBC & Chem 7: 01/26/19 06:57 01/25/19 05:29 Labs: Laboratory Last Values WBC 12.8 K/mm3 (4.5-11.0) H 01/26/19 06:57 RBC 4.21 M/mm3 (3.65-5.03) 01/26/19 06:57 Hgb 12.1 gm/dl (10.1-14.3) 01/26/19 06:57 Hct 36.4 % (30.3-42.9) 01/26/19 06:57 MCV 87 fl (79-97) 01/26/19 06:57 MCH 29 pg (28-32) 01/26/19 06:57 MCHC 33 % (30-34) 01/26/19 06:57 RDW 15.7 % (13.2-15.2) H 01/26/19 06:57 Plt Count 336 K/mm3 (140-440) 01/26/19 06:57 Lymph % (Auto) 8.7 % (13.4-35.0) L 01/25/19 05:29 [place] % (Auto) 0.9 % (0.0-7.3) 01/25/19 05:29 Eos % (Auto) 0.4 % (0.0-4.3) 01/25/19 05:29 Baso % (Auto) 0.5 % (0.0-1.8) 01/25/19 05:29 Lymph # 0.5 K/mm3 (1.2-5.4) L 01/25/19 05:29 [place] # 0.1 K/mm3 (0.0-0.8) 01/25/19 05:29 Eos # 0.0 K/mm3 (0.0-0.4) 01/25/19 05:29 Baso # 0.0 K/mm3 (0.0-0.1) 01/25/19 05:29 Add Manual Diff Complete 01/24/19 21:10 Total Counted 100 01/24/19 21:10 Seg Neutrophils % 89.5 % (40.0-70.0) H 01/25/19 05:29 Seg Neuts % (Manual) 52.0 % (40.0-70.0) 01/24/19 21:10 0 % 01/24/19 21:10 17.0 % (13.4-35.0) 01/24/19 21:10 Reactive Lymphs % (Man) 0 % 01/24/19 21:10 8.0 % (0.0-7.3) H 01/24/19 21:10 22.0 % (0.0-4.3) H 01/24/19 21:10 1.0 % (0.0-1.8) 01/24/19 21:10 0 % 01/24/19 21:10 0 % 01/24/19 21:10 0 % 01/24/19 21:10 0 % 01/24/19 21:10 Nucleated RBC % Not Reportable 01/24/19 21:10 Seg Neutrophils # 5.4 K/mm3 (1.8-7.7) 01/25/19 05:29 Seg Neutrophils # Man 4.4 K/mm3 (1.8-7.7) 01/24/19 21:10 Band Neutrophils # 0.0 K/mm3 01/24/19 21:10 1.4 K/mm3 (1.2-5.4) 01/24/19 21:10 Abs React Lymphs (Man) 0.0 K/mm3 01/24/19 21:10 0.7 K/mm3 (0.0-0.8) 01/24/19 21:10 1.9 K/mm3 (0.0-0.4) H 01/24/19 21:10 0.1 K/mm3 (0.0-0.1) 01/24/19 21:10 0.0 K/mm3 01/24/19 21:10 0.0 K/mm3 01/24/19 21:10 0.0 K/mm3 01/24/19 21:10 Blast Cells # 0.0 K/mm3 01/24/19 21:10 WBC Morphology Not Reportable 01/24/19 21:10 Hypersegmented Neuts Not Reportable 01/24/19 21:10 Hyposegmented Neuts Not Reportable 01/24/19 21:10 Hypogranular Neuts Not Reportable 01/24/19 21:10 Not Reportable 01/24/19 21:10 Not Reportable 01/24/19 21:10 Not Reportable 01/24/19 21:10 Not Reportable 01/24/19 21:10 Not Reportable 01/24/19 21:10 Not Reportable 01/24/19 21:10 Not Reportable 01/24/19 21:10 Not Reportable 01/24/19 21:10 Plt Clumps, EDTA Not Reportable 01/24/19 21:10 Not Reportable 01/24/19 21:10 Not Reportable 01/24/19 21:10 Not Reportable 01/24/19 21:10 Plt Morphology Comment Not Reportable 01/24/19 21:10 RBC Morphology Normal 01/24/19 21:10 Dimorphic RBCs Not Reportable 01/24/19 21:10 Not Reportable 01/24/19 21:10 Not Reportable 01/24/19 21:10 Not Reportable 01/24/19 21:10 Not Reportable 01/24/19 21:10 Not Reportable 01/24/19 21:10 Not Reportable 01/24/19 21:10 Not Reportable 01/24/19 21:10 Not Reportable 01/24/19 21:10 Not Reportable 01/24/19 21:10 Not Reportable 01/24/19 21:10 Not Reportable 01/24/19 21:10 Not Reportable 01/24/19 21:10 Not Reportable 01/24/19 21:10 Not Reportable 01/24/19 21:10 Not Reportable 01/24/19 21:10 Not Reportable 01/24/19 21:10 Not Reportable 01/24/19 21:10 Not Reportable 01/24/19 21:10 Not Reportable 01/24/19 21:10 Acanthocytes (Spur) Not Reportable 01/24/19 21:10 Rouleaux Not Reportable 01/24/19 21:10 Not Reportable 01/24/19 21:10 Not Reportable 01/24/19 21:10 Not Reportable 01/24/19 21:10 Not Reportable 01/24/19 21:10 Hem Pathologist Commnt No 01/24/19 21:10 PT 14.4 Sec. (12.2-14.9) 01/24/19 21:10 INR 1.05 (0.87-1.13) 01/24/19 21:10 APTT 31.5 Sec. (24.2-36.6) 01/24/19 21:10 POC ABG pH 7.373 (7.35-7.45) 01/24/19 21:28 POC ABG pCO2 44.4 (35-45) 01/24/19 21:28 POC ABG pO2 56 (80-105) L 01/24/19 21:28 POC ABG HCO3 25.9 (22-26 mml/L) 01/24/19 21:28 POC ABG Total CO2 27 (23-27mmol/L) 01/24/19 21:28 POC ABG O2 Sat 88 01/24/19 21:28 POC ABG Base Excess 1 ((-2) - (+3)mmol/L) 01/24/19 21:28 21 % 01/24/19 21:28 Sodium 143 mmol/L (137-145) 01/25/19 05:29 Potassium 3.8 mmol/L (3.6-5.0) 01/25/19 05:29 Chloride 106.8 mmol/L (98-107) 01/25/19 05:29 Carbon Dioxide 23 mmol/L (22-30) 01/25/19 05:29 17 mmol/L 01/25/19 05:29 BUN 9 mg/dL (7-17) 01/25/19 05:29 0.7 mg/dL (0.7-1.2) 01/25/19 05:29 Estimated GFR > 60 ml/min 01/25/19 05:29 13 % 01/25/19 05:29 Glucose 168 mg/dL (65-100) H 01/25/19 05:29 Lactic Acid 1.20 mmol/L (0.7-2.0) 01/24/19 23:16 Calcium 8.7 mg/dL (8.4-10.2) 01/25/19 05:29 Magnesium 2.10 mg/dL (1.7-2.3) 01/24/19 21:10 0.40 mg/dL (0.1-1.2) 01/24/19 21:10 AST 14 units/L (5-40) 01/24/19 21:10 ALT 12 units/L (7-56) 01/24/19 21:10 205 units/L (35-129) H 01/24/19 21:10 92 units/L (30-135) 01/24/19 21:10 < 0.010 ng/mL (0.00-0.029) 01/24/19 21:10 8.2 g/dL (6.3-8.2) 01/24/19 21:10 3.4 g/dL (3.9-5) L 01/24/19 21:10 0.7 % 01/24/19 21:10 Yellow (Yellow) 01/25/19 07:52 Clear (Clear) 01/25/19 07:52 5.0 (5.0-7.0) 01/25/19 07:52 Ur Specific [place] 1.017 (1.003-1.030) 01/25/19 07:52 <15 mg/dl mg/dL (Negative) 01/25/19 07:52 Neg mg/dL (Negative) 01/25/19 07:52 Neg mg/dL (Negative) 01/25/19 07:52 Neg (Negative) 01/25/19 07:52 Neg (Negative) 01/25/19 07:52 Neg (Negative) 01/25/19 07:52 < 2.0 mg/dL (<2.0) 01/25/19 07:52 Ur Leukocyte Esterase Neg (Negative) 01/25/19 07:52 < 1.0 /HPF (0.0-6.0) 01/25/19 07:52 2.0 /HPF (0.0-6.0) 01/25/19 07:52 U Epithel Cells (Auto) 1.0 /HPF (0-13.0) 01/25/19 07:52 Few /HPF 01/25/19 07:52 Active Medications - Current Medications Current Medications: Generic Name Dose Route Start Last Admin Trade Name Freq PRN Reason Stop Dose Admin Acetaminophen 650 mg 01/24/19 22:35 01/25/19 01:28 Tylenol PO 650 mg Q4H PRN Administration Pain MILD(1-3)/Fever >100.5/PACE Albuterol/Ipratropium 1 ampul 01/25/19 02:00 01/26/19 07:47 Duoneb *Not For Prn Use* IH 1 ampul Q6HRT ALLEN Administration Amlodipine Besylate 5 mg 01/25/19 10:00 01/25/19 11:10 Norvasc PO 5 mg DAILY ALLEN Administration Benzonatate 100 mg 01/25/19 06:00 01/26/19 06:18 Tessalon Perles PO 100 mg Q8HR ALLEN Administration Enoxaparin Sodium 40 mg 01/25/19 10:00 01/25/19 11:10 Lovenox SUB-Q 40 mg QDAY@1000 ALLEN Administration Methylprednisolone Sodium Succinate 125 mg 01/25/19 03:00 01/26/19 06:19 Solu-Medrol IV 125 mg Q6H ALLEN Administration Montelukast Sodium 10 mg 01/25/19 22:00 01/25/19 23:20 Singulair PO 10 mg HS ALLEN Administration Ondansetron HCl 4 mg 01/24/19 22:35 Zofran IV Q8H PRN Nausea And Vomiting Pantoprazole Sodium 20 mg 01/25/19 10:00 01/25/19 11:11 Protonix PO 20 mg QDAY ALLEN Administration Sodium Chloride 10 ml 01/25/19 10:00 01/25/19 23:21 Sodium Chloride Flush Syringe 10 Ml IV 10 ml BID ALLEN Administration Sodium Chloride 10 ml 01/24/19 22:35 01/26/19 06:19 Sodium Chloride Flush Syringe 10 Ml IV 10 ml PRN PRN Administration LINE FLUSH
[2019-01-26 08:35] LABS: BUN/Creatinine Ratio 17; Blood Urea Nitrogen 12 mg/dL (7-17); Calcium 8.6 mg/dL (8.4-10.2); Hemolysis Index 6
[2019-01-26] MEDS: NORVASC PO SCH (10:53)
[2019-01-26] MEDS: PROTONIX PO SCH (10:53)
[2019-01-26] MEDS: LOVENOX SUB-Q SCH (10:54)
[2019-01-26] MEDS: SODIUM CHLORIDE FLUSH SYRINGE 10 ML IV SCH (10:54)
--- NOTE | 2019-01-26 11:56 | Progress Note ---
Assessment and Plan 1. Encouraged patient to keep follow up with Pulmonary 2. Agree with IMS plan for discharge 3. No objection to discharge from a pulmonary standpoint. Subjective Date of service: 01/26/19 Interval history: Weaned to room air. Cough is better. No acute findings on CT of chest. Objective Vital Signs - 12hr 01/26/19 01/26/19 01/26/19 01:37 01:44 05:48 Temperature 98.4 F Pulse Rate 95 H Pulse Rate [ 95 H 93 H Posterior Bilateral Throughout] Respiratory 20 Rate Respiratory 14 14 Rate [Posterior Bilateral Throughout] Blood Pressure 140/75 O2 Sat by Pulse 88 Oximetry 01/26/19 01/26/19 01/26/19 06:18 07:46 07:47 Temperature Pulse Rate 97 H Pulse Rate [ 98 H Posterior Bilateral Throughout] Respiratory 18 Rate Respiratory 20 Rate [Posterior Bilateral Throughout] Blood Pressure O2 Sat by Pulse 96 97 Oximetry 01/26/19 01/26/19 07:58 10:53 Temperature Pulse Rate 97 H Pulse Rate [ 90 Posterior Bilateral Throughout] Respiratory Rate Respiratory 20 Rate [Posterior Bilateral Throughout] Blood Pressure 138/76 O2 Sat by Pulse Oximetry CBC and BMP: 01/26/19 06:57 01/26/19 06:57 ABG, PT/INR, D-dimer: ABG POC ABG pH 7.373 (7.35-7.45) 01/24/19 21:28 POC ABG pCO2 44.4 (35-45) 01/24/19 21:28 POC ABG pO2 56 (80-105) L 01/24/19 21:28 POC ABG HCO3 25.9 (22-26 mml/L) 01/24/19 21:28 POC ABG Total CO2 27 (23-27mmol/L) 01/24/19 21:28 POC ABG O2 Sat 88 01/24/19 21:28 PT/INR, D-dimer PT 14.4 Sec. (12.2-14.9) 01/24/19 21:10 INR 1.05 (0.87-1.13) 01/24/19 21:10 Abnormal lab findings: Abnormal Labs 01/24/19 01/24/19 01/24/19 21:10 21:10 21:28 WBC RDW 15.4 H Lymph % (Auto) Lymph # Seg Neutrophils % Monocytes % (Manual) 8.0 H Eosinophils % (Manual) 22.0 H Eosinophils # (Manual) 1.9 H POC ABG pO2 56 L Potassium 3.4 L Glucose 109 H Alkaline Phosphatase 205 H Albumin 3.4 L 01/25/19 01/25/19 01/26/19 05:29 05:29 06:57 WBC 12.8 H RDW 15.5 H 15.7 H Lymph % (Auto) 8.7 L Lymph # 0.5 L Seg Neutrophils % 89.5 H Monocytes % (Manual) Eosinophils % (Manual) Eosinophils # (Manual) POC ABG pO2 Potassium Glucose 168 H Alkaline Phosphatase Albumin 01/26/19 06:57 WBC RDW Lymph % (Auto) Lymph # Seg Neutrophils % Monocytes % (Manual) Eosinophils % (Manual) Eosinophils # (Manual) POC ABG pO2 Potassium Glucose 156 H Alkaline Phosphatase Albumin
[2019-01-26 13:29] VITALS: BP 135/61
--- NOTE | 2019-01-26 14:53 | Discharge Summary ---
Providers - Providers Date of Admission: 01/24/19 22:35 Date of discharge: 01/26/19 Attending physician: CHUCKIE CHO 01/24/19 22:35 Consult to Physician [CONS] Routine Comment: Consulting Provider: WU SHETH Physician Instructions: Reason For Exam: bronchitis Primary care physician: SYEDA JOSEPH Hospitalization Condition: Stable Hospital course: Patient is a 63 yo woman with a history of hypertension who presented to [facility] ED with sob, cough. * CT chest with and without contrast IMPRESSION: Mild diffuse peribronchial thickening, which may represent bronchitis. Minimal groundglass opacities at the bilateral lung bases that may reflect atelectasis, inflammation, or infection. Acute hypoxic respiratory failure, pO2 was only 56: treat with O2, CT chest done using IV ativan for sedation because patient is extremely claustrophobic Sepsis with Acute bronchitis as evident by HR 115, RR 24 poa: treat with ABX, nebs, iv steroids and follow cultures Accelerated hypertension with Urgency: iv hydralazine prn, continue norvasc, low salt diet Hypokalemia: replete and monitor closely Sinus Disorder, mildly enlarged turbinates, she has Flonase at home. no Eyelid swelling: DVT ppx reviewed on sq Lovenox Leukocytosis, due to iv steroids Disposition: continue inpatient care, anticipate once hypoxic resolves and cleared by Pulmonology, try to wean off O2 today and wean down iv steroids full code Disposition: DC-01 TO HOME OR SELFCARE Time spent for discharge: 35 minutes Core Measure Documentation - Palliative Care Palliative Care/ Comfort Measures: Not Applicable - Core Measures Any of the following diagnoses?: none - VTE Discharge Requirements Deep Vein Thrombosis/Pulmonary Embolism Present on Admission: No Has pt received <5 days of overlap therapy or INR<2.0: No Anticoagulant overlap therapy prescribed at discharge: No Contraindication No Overlap Therapy order at DC: Not Indicated Exam - Physical Exam Narrative exam: Gen: WDWN, NAD, Awake, Alert, Orientated HEENT: NCAT, EOMI, PERRL, OP Clear Neck: supple, no adenopathy, no thyromegaly, no JVD CVS/Heart: RRR, normal S1S2, pulses present bilaterally Chest/Lungs: bibasilar crackles, Symmetrical chest expansion, good air entry bilaterally GI/Abdomen: soft, NTND, good bowel sounds, no guarding or rebound /Bladder: no suprapubic tenderness, no CVA or paraspinal tenderness Extermity/Skin: no c/c/e, no obvious rash MSK: FROM x 4 Neuro: CN 2-12 grossly intact, no new focal deficits Psych: calm - Constitutional Vitals: Temp Pulse Resp BP Pulse Ox 98.7 F 106 H 18 135/61 92 01/26/19 12:48 01/26/19 13:53 01/26/19 13:53 01/26/19 12:48 01/26/19 12:48 Plan Activity: other (no strenous acitivity unless cleared by PCP) Diet: low salt Durable Medical Equipment Needed Upon Discharge: Nebulizer Follow up with: SYEDA JOSEPH MD [Primary Care Provider] - 3-5 Days Prescriptions: cefUROXime [Ceftin] 500 mg PO BID #10 tablet RX: Ipratropium/Albuterol Sulfate [DUONEB *Not for PRN Use*] 1 ampul IH Q4H PRN #1 ampul.neb PRN Reason: Shortness Of Breath methylPREDNISolone [Medrol 4MG DOSEPAK (21 tabs)] 1 dose PO DAILY #1 tab.ds.pk RX: ALBUTEROL Inhaler (OR & NICU) [ProAir HFA Inhaler] 1 puff IH Q8HR PRN #1 inha PRN Reason: wheezing RX: Pantoprazole [Protonix TAB] 40 mg PO QDAY #30 tablet. RX: Montelukast [Singulair] 10 mg PO HS #30 tablet
== END 2019-01-26 16:35 | disposition home or self-care (01) | DRG 871 ==
LOC: ED 17:16 → 3A 22:35
PROVIDERS: ADMIT Internal Medicine; ATTEND Internal Medicine
PROC: 4A033R1 Measurement of Arterial Saturation, Peripheral, Percutaneous Approach (ICD-10-PCS; principal; 2019-01-24)
DX: A41.9 Sepsis, unspecified organism (principal); J96.01 Acute respiratory failure with hypoxia; J20.9 Acute bronchitis, unspecified; I10 Essential (primary) hypertension; I16.0 Hypertensive urgency; E87.6 Hypokalemia; J32.9 Chronic sinusitis, unspecified; T38.0X5A Adverse effect of glucocorticoids and synthetic analogues, initial encounter; Y92.89 Other specified places as the place of occurrence of the external cause
CPT/HCPCS: 36415; 71046; 71270; 80048; 80053; 81001; 82140; 82550; 82803; 83735; 84484; 85007; 85025; 85027; 85610; 85730; 87040; 87086; 93005; 93010; 94640; 94760; 96374; 96375; 99285; G0378; J0456; J0696; J1650; J2060; J2405; J2930; J3480; J7030; J7050; Q9967

== ENCOUNTER 2019-04-28 20:37 | Emergency (ER) | payer OTHER ==
[2019-04-28] MEDS ORDERED: DUONEB *Not for PRN Use IH ONE ×2 (21:37→22:59)
--- NOTE | 2019-04-28 21:39 | Event Note ---
ED Screening Note Date of service: 04/28/19 Time: 21:35 ED Screening Note: 63 y o female presents to ED with nasal congestion and draining causing difficulty breathing prod cough otc meds not working This initial assessment/diagnostic orders/clinical plan/treatment(s) is/are subject to change based on patients health status, clinical progression and re- assessment by fellow clinical providers in the ED. Further treatment and workup at subsequent clinical providers discretion. Patient/guardian urged not to elope from the ED as their condition may be serious if not clinically assessed and managed. Initial orders include: cxr prednisone
--- NOTE | 2019-04-28 22:20 | XRay Report ---
CHEST PA AND LATERAL VIEWS INDICATION: cough/sob. COMPARISON: 01/24/2019 FINDINGS: Support devices: None Heart: Stable. Lungs/Pleura: No acute pulmonary or pleural findings. IMPRESSION: 1. No acute disease and no interval change. Signer Name: New Alexis MD Signed: 04/28/2019 10:15 PM Workstation Name: [id number]
[2019-04-28] MEDS ORDERED: SOLU-Medrol IM ONE (22:59)
--- NOTE | 2019-04-29 01:02 | Emergency Department Report ---
- General Chief Complaint: Dyspnea/Respdistress Stated Complaint: SINUSES,YOHAN Time Seen by Provider: 04/28/19 21:35 Source: patient Mode of arrival: Ambulatory Limitations: No Limitations - History of Present Illness Initial Comments: Patient is a 63-year-old -[place] female with a history of asthma who presents to the ED with acute onset persistent nasal and sinus congestion, frontal sinus pressure, frontal sinus headache, dry cough with wheezing intermittently for the last 2 weeks, worse in the last 2 days. Patient states that he shows been using her medications at home with no relief. Patient denies fever, chills, nausea, vomiting, chest pain, dizziness, diarrhea, sore throat, syncope, abdominal pain or back pain. MD Complaint: cough, rhinorrhea, nasal congestion, sinus pain -: Gradual, week(s) (2) Severity: moderate Severity scale (0 -10): 6 Quality: dull, aching Consistency: constant Improves With: nothing Worsens With: nothing Context: sick contacts Associated Symptoms: denies other symptoms, rhinorrhea, nasal congestion, cough, shortness of breath. denies: fever, chills, myalgias, diaphoresis, headache, sore throat, stiff neck, chest pain, abdominal pain, nausea, diarrhea, dysuria, rash, confusion, right sweats, epistaxis, hoarseness Treatments Prior to Arrival: "cold medicine" - Related Data Home Medications Medication Instructions Recorded Confirmed Last Taken Benzonatate [Tessalon Perles] 100 mg PO Q8HR PRN 01/24/19 01/24/19 Unknown Previous Rx's Medication Instructions Recorded Last Taken Type Ondansetron [Zofran ODT TAB] 4 mg PO Q8HR PRN #14 tab.rapdis 01/02/19 Unknown Rx ALBUTEROL Inhaler (OR & NICU) 1 puff IH Q8HR PRN #1 inha 01/26/19 Unknown Rx [ProAir HFA Inhaler] Acetaminophen [Acetaminophen TAB] 325 mg PO Q4H PRN tablet 01/26/19 Unknown Rx Ipratropium/Albuterol Sulfate 1 ampul IH Q4H PRN #1 ampul.neb 01/26/19 Unknown Rx [DUONEB *Not for PRN Use*] Montelukast [Singulair] 10 mg PO HS #30 tablet 01/26/19 Unknown Rx Pantoprazole [Protonix TAB] 40 mg PO QDAY #30 tablet.dr 01/26/19 Unknown Rx amLODIPine [Norvasc] 5 mg PO DAILY #30 01/26/19 Unknown Rx cefUROXime [Ceftin] 500 mg PO BID #10 tablet 01/26/19 Unknown Rx methylPREDNISolone [Medrol 4MG 1 dose PO DAILY #1 tab.ds.pk 01/26/19 Unknown Rx DOSEPAK (21 tabs)] Amoxicillin/Potassium Clav 1 each PO Q12H #20 tablet 04/29/19 Unknown Rx [Augmentin 875-125 Tablet] Benzonatate [Tessalon Perles] 100 mg PO Q8HR #30 capsule 04/29/19 Unknown Rx Cetirizine HCl [Zyrtec 10mg tab] 10 mg PO DAILY #30 tablet 04/29/19 Unknown Rx Prednisone [predniSONE 10 mg 10 mg PO .TAPER #21 tab.ds.pk 04/29/19 Unknown Rx (6-Day Pack, 21 Tabs)] Allergies Allergy/AdvReac Type Severity Reaction Status Date / Time pineapple Allergy Dizziness Verified 01/24/19 17:19 ED Review of Systems ROS: Stated complaint: SINUSES,YOHAN Other details as noted in HPI Constitutional: denies: chills, fever Eyes: denies: eye pain, eye discharge, vision change ENT: congestion. denies: ear pain, throat pain Respiratory: cough, shortness of breath, wheezing Cardiovascular: denies: chest pain, palpitations, dyspnea on exertion, edema, syncope, paroxysmal nocturnal dyspnea Endocrine: no symptoms reported Gastrointestinal: denies: abdominal pain, nausea, diarrhea Genitourinary: denies: urgency, dysuria, discharge Musculoskeletal: denies: back pain, joint swelling, arthralgia Skin: denies: rash, lesions Neurological: denies: headache, weakness, paresthesias Psychiatric: denies: anxiety, depression Hematological/Lymphatic: denies: easy bleeding, easy bruising ED Past Medical Hx - Past Medical History Previous Medical History?: Yes Hx Hypertension: Yes Hx Congestive Heart Failure: No Hx Diabetes: No Hx Asthma: No Hx COPD: No Hx HIV: No - Surgical History Past Surgical History?: No - Social History Smoking Status: Never Smoker Substance Use Type: None - Medications Home Medications: Home Medications Medication Instructions Recorded Confirmed Last Taken Type Ondansetron [Zofran ODT TAB] 4 mg PO Q8HR PRN #14 tab.rapdis 01/02/19 01/24/19 Unknown Rx Benzonatate [Tessalon Perles] 100 mg PO Q8HR PRN 01/24/19 01/24/19 Unknown History ALBUTEROL Inhaler (OR & NICU) 1 puff IH Q8HR PRN #1 inha 01/26/19 Unknown Rx [ProAir HFA Inhaler] Acetaminophen [Acetaminophen TAB] 325 mg PO Q4H PRN tablet 01/26/19 Unknown Rx Ipratropium/Albuterol Sulfate 1 ampul IH Q4H PRN #1 ampul.neb 01/26/19 Unknown Rx [DUONEB *Not for PRN Use*] Montelukast [Singulair] 10 mg PO HS #30 tablet 01/26/19 Unknown Rx Pantoprazole [Protonix TAB] 40 mg PO QDAY #30 tablet.dr 01/26/19 Unknown Rx amLODIPine [Norvasc] 5 mg PO DAILY #30 01/26/19 01/24/19 Unknown Rx cefUROXime [Ceftin] 500 mg PO BID #10 tablet 01/26/19 Unknown Rx methylPREDNISolone [Medrol 4MG 1 dose PO DAILY #1 tab.ds.pk 01/26/19 Unknown Rx DOSEPAK (21 tabs)] Amoxicillin/Potassium Clav 1 each PO Q12H #20 tablet 04/29/19 Unknown Rx [Augmentin 875-125 Tablet] Benzonatate [Tessalon Perles] 100 mg PO Q8HR #30 capsule 04/29/19 Unknown Rx Cetirizine HCl [Zyrtec 10mg tab] 10 mg PO DAILY #30 tablet 04/29/19 Unknown Rx Prednisone [predniSONE 10 mg 10 mg PO .TAPER #21 tab.ds.pk 04/29/19 Unknown Rx (6-Day Pack, 21 Tabs)] ED Physical Exam - General Limitations: No Limitations General appearance: alert, in no apparent distress - Head Head exam: Present: atraumatic, normocephalic, normal inspection - Eye Eye exam: Present: normal appearance, PERRL, EOMI Pupils: Present: normal accommodation - ENT ENT exam: Present: normal orophraynx, mucous membranes moist, TM's normal bilaterally, normal external ear exam, other (grossly congested nasal passages; frontal sinus pressure and tenderness) - Neck Neck exam: Present: normal inspection, full ROM - Respiratory Respiratory exam: Present: normal lung sounds bilaterally, wheezes (diffusely coarse wheezes). Absent: respiratory distress, chest wall tenderness, accessory muscle use, decreased breath sounds - Cardiovascular Cardiovascular Exam: Present: regular rate, normal rhythm, normal heart sounds. Absent: systolic murmur, diastolic murmur, rubs, gallop - GI/Abdominal GI/Abdominal exam: Present: soft. Absent: tenderness, guarding, rebound, hyperactive bowel sounds, hypoactive bowel sounds, organomegaly, mass - Rectal Rectal exam: Present: deferred - Extremities Exam Extremities exam: Present: normal inspection, full ROM, normal capillary refill - Back Exam Back exam: Present: normal inspection, full ROM. Absent: tenderness, CVA tenderness (R), CVA tenderness (L), muscle spasm, paraspinal tenderness, vertebral tenderness - Neurological Exam Neurological exam: Present: alert, oriented X3, CN II-XII intact, normal gait, reflexes normal - Psychiatric Psychiatric exam: Present: normal affect, normal mood - Skin Skin exam: Present: warm, dry, intact, normal color. Absent: rash ED Course Vital Signs 04/28/19 04/28/19 21:37 21:49 Temperature 98.6 F Pulse Rate 94 H Pulse Rate [ 99 H Anterior Throughout] Respiratory 20 Rate Respiratory 20 Rate [Anterior Throughout] Blood Pressure 183/107 O2 Sat by Pulse 94 Oximetry - Reevaluation(s) Reevaluation #1: 04/29/19 01:00 This is a 63-year-old female with a history of asthma who presented to the ED with persistent nasal and sinus congestion, dry cough and wheezing for the last 2 weeks. In the ED, patient is alert and oriented 3 and is not in distress. Patient received 1 amp treatment twice in the ED with Solu-Medrol injection. Chest x-ray shows no acute cardiopulmonary abnormalities. On reevaluation, patient's wheezing is significantly improved, oxygen saturation is between 99- 100% in room air. Patient was discharged home on medications and advised to follow-up with primary care physician a 3-5 days for reevaluation. Patient was also advised to return to the ED immediately if symptoms get worse. ED Medical Decision Making - Radiology Data Radiology results: report reviewed, image reviewed Chest x-ray shows no acute cardiopulmonary abnormalities - Medical Decision Making This is a 63-year-old female with a history of asthma who presented to the ED with persistent nasal and sinus congestion, dry cough and wheezing for the last 2 weeks. In the ED, patient is alert and oriented 3 and is not in distress. Patient received 1 amp treatment twice in the ED with Solu-Medrol injection. Chest x-ray shows no acute cardiopulmonary abnormalities. On reevaluation, patient's wheezing is significantly improved, oxygen saturation is between 99- 100% in room air. Patient was discharged home on medications and advised to follow-up with primary care physician a 3-5 days for reevaluation. Patient was also advised to return to the ED immediately if symptoms get worse. - Differential Diagnosis acute asthmatic bronchitis; acute URI; Acute sinusitis; allergic rhinitis Critical care attestation.: If time is entered above; I have spent that time in minutes in the direct care of this critically ill patient, excluding procedure time. ED Disposition Clinical Impression: Acute asthmatic bronchitis, Acute upper respiratory infection, Acute bacterial sinusitis Disposition: TO HOME OR SELFCARE Is pt being admited?: No Does the pt Need Aspirin: No Condition: Stable Instructions: Acute Bronchitis (ED), Upper Respiratory Infection (ED), Acute Bacterial Rhinosinusitis (ED), Asthma (ED) Additional Instructions: Take medications with food, drink plenty of fluids and follow up with your primary care physician in 7-10 days for reevaluation. Return to the ED immediately if symptoms get worse. Prescriptions: Amoxicillin/Potassium Clav [Augmentin 875-125 Tablet] 1 each PO Q12H #20 tablet Prednisone [predniSONE 10 mg (6-Day Pack, 21 Tabs)] 10 mg PO .TAPER #21 tab.ds.pk Benzonatate [Tessalon Perles] 100 mg PO Q8HR #30 capsule Cetirizine HCl [Zyrtec 10mg tab] 10 mg PO DAILY #30 tablet Referrals: PRIMARY CARE, [Primary Care Provider] - 3-5 Days Time of Disposition: 01:04 Print Language: BURUNDIAN
[2019-04-29 01:23] VITALS: BP 170/97
== END 2019-04-29 01:24 | disposition home or self-care (01) ==
LOC: ED 20:37
DX: J45.909 Unspecified asthma, uncomplicated (principal); J32.9 Chronic sinusitis, unspecified; J06.9 Acute upper respiratory infection, unspecified; B96.89 Other specified bacterial agents as the cause of diseases classified elsewhere
CPT/HCPCS: 71046; 94640; 96372; 99283; J2930; 94644

== ENCOUNTER 2019-05-07 10:37 | Outpatient (CLI) | payer OTHER ==
[2019-05-07 12:23] LABS: Hematocrit 42.9 % (30.3-42.9); Hemoglobin 14.4 gm/dl (10.1-14.3); Mean Corpuscular HGB Conc 34 % (30-34); Mean Corpuscular Volume 86 fl (79-97); Platelet Count 373 K/mm3 (140-440); Red Blood Count 4.96 M/mm3 (3.65-5.03); Red Cell Distribution Width 15.2 % (13.2-15.2)
[2019-05-07 12:39] LABS: Alanine Aminotransferase 20 units/L (7-56); BUN/Creatinine Ratio 16; Blood Urea Nitrogen 13 mg/dL (7-17); Calcium 9.2 mg/dL (8.4-10.2); Chol/HDL Ratio 2.03 %; HDL Cholesterol 90 mg/dL (40-59); Hemolysis Index 3; LDL Cholesterol,Direct 77 mg/dL (50-130)
[2019-05-10 09:01] LABS: Vitamin D, 25-OH, D2 <4 ng/mL
== END 2019-05-07 10:38 | disposition home or self-care (01) ==
LOC: LAB 10:37
PROVIDERS: ATTEND Internal Medicine
DX: Z13.21 Encounter for screening for nutritional disorder (principal); Z13.220 Encounter for screening for lipoid disorders; R73.9 Hyperglycemia, unspecified; I10 Essential (primary) hypertension
CPT/HCPCS: 36415; 80053; 80061; 82306; 82607; 83036; 84443; 85027

== ENCOUNTER 2019-05-26 18:41 | Emergency (ER) | payer SELFPAY ==
[2019-05-26 19:07] VITALS: BP 156/87
--- NOTE | 2019-05-26 20:34 | Event Note ---
ED Screening Note Date of service: 05/26/19 Time: 20:05 ED Screening Note: pT HERE WIITH SINUS COMPLAINTS, RED/ITCHY EYES, SHE HAS BEEN GERE SEVERAL TIMES FOR THE SAME THING AND WAS ADMITTED. LAST VIST 04/28/2019 AND WAS ADMITTED. 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 SHE REPORTS THAT SHE WAS WORKED UP BY PULMONAR AND NOTHING WAS FOUND. SHE REPORTS THIS HAS BEEN GOING ON FOR 7 MONTHS AND GETTING WORST. sHE SEES DR MOROCHO PCP. NO ENT This initial assessment/diagnostic orders/clinical plan/treatment(s) is/are subject to change based on patients health status, clinical progression and re- assessment by fellow clinical providers in the ED. Further treatment and workup at subsequent clinical providers discretion. Patient/guardian urged not to elope from the ED as their condition may be serious if not clinically assessed and managed. Initial orders include: TO BE SEEN IN FAST TRACK
--- NOTE | 2019-05-26 21:19 | Emergency Department Report ---
- General Chief Complaint: Eye Problems Stated Complaint: RT EYE PAIN/VOMIT/MUCUS Time Seen by Provider: 05/26/19 20:40 Source: patient Mode of arrival: Ambulatory Limitations: No Limitations - History of Present Illness Initial Comments: 64-year-old female presents to ED with 1 week history of cough, posttussive emesis, nasal congestion, headache. Patient reports subjective fever. Patient states she has been dealing with these symptoms, off and on, for the last year. Patient states his symptoms usually improve with antibiotics and steroids. States she has never been evaluated by an ENT physician. MD Complaint: fever, cough, nasal congestion -: week(s) (1) Severity: moderate Quality: aching Consistency: constant Improves With: nothing Worsens With: nothing Associated Symptoms: fever, headache, nasal congestion, cough, vomiting (post- tussive). denies: chest pain, shortness of breath - Related Data Home Medications Medication Instructions Recorded Confirmed Last Taken Benzonatate [Tessalon Perles] 100 mg PO Q8HR PRN 01/24/19 01/24/19 Unknown Previous Rx's Medication Instructions Recorded Last Taken Type Ondansetron [Zofran ODT TAB] 4 mg PO Q8HR PRN #14 tab.rapdis 01/02/19 Unknown Rx ALBUTEROL Inhaler (OR & NICU) 1 puff IH Q8HR PRN #1 inha 01/26/19 Unknown Rx [ProAir HFA Inhaler] Acetaminophen [Acetaminophen TAB] 325 mg PO Q4H PRN tablet 01/26/19 Unknown Rx Ipratropium/Albuterol Sulfate 1 ampul IH Q4H PRN #1 ampul.neb 01/26/19 Unknown Rx [DUONEB *Not for PRN Use*] Montelukast [Singulair] 10 mg PO HS #30 tablet 01/26/19 Unknown Rx Pantoprazole [Protonix TAB] 40 mg PO QDAY #30 tablet.dr 01/26/19 Unknown Rx cefUROXime [Ceftin] 500 mg PO BID #10 tablet 01/26/19 Unknown Rx methylPREDNISolone [Medrol 4MG 1 dose PO DAILY #1 tab.ds.pk 01/26/19 Unknown Rx DOSEPAK (21 tabs)] Amoxicillin/Potassium Clav 1 each PO Q12H #20 tablet 04/29/19 Unknown Rx [Augmentin 875-125 Tablet] Benzonatate [Tessalon Perles] 100 mg PO Q8HR #30 capsule 04/29/19 Unknown Rx Cetirizine HCl [Zyrtec 10mg tab] 10 mg PO DAILY #30 tablet 04/29/19 Unknown Rx Prednisone [predniSONE 10 mg 10 mg PO .TAPER #21 tab.ds.pk 04/29/19 Unknown Rx (6-Day Pack, 21 Tabs)] amLODIPine [Norvasc] 5 mg PO DAILY #30 tablet 04/29/19 Unknown Rx Amoxicillin [Amoxicillin TAB] 875 mg PO TID 5 Days #15 tablet 05/26/19 Unknown Rx Benzonatate [Tessalon Perles] 100 mg PO Q8HR PRN #20 capsule 05/26/19 Unknown Rx predniSONE [Deltasone] 50 mg PO QDAY #5 tab 05/26/19 Unknown Rx Allergies Allergy/AdvReac Type Severity Reaction Status Date / Time pineapple Allergy Dizziness Verified 01/24/19 17:19 ED Review of Systems ROS: Stated complaint: RT EYE PAIN/VOMIT/MUCUS Other details as noted in HPI Comment: All other systems reviewed and negative Constitutional: fever Eyes: eye pain ENT: congestion Respiratory: cough Gastrointestinal: denies: nausea Neurological: headache ED Past Medical Hx - Past Medical History Previous Medical History?: Yes Hx Hypertension: Yes Hx Congestive Heart Failure: No Hx Diabetes: No Hx Asthma: No Hx COPD: No Hx HIV: No - Surgical History Past Surgical History?: No - Social History Smoking Status: Never Smoker Substance Use Type: None - Medications Home Medications: Home Medications Medication Instructions Recorded Confirmed Last Taken Type Ondansetron [Zofran ODT TAB] 4 mg PO Q8HR PRN #14 tab.rapdis 01/02/19 01/24/19 Unknown Rx Benzonatate [Tessalon Perles] 100 mg PO Q8HR PRN 01/24/19 01/24/19 Unknown History ALBUTEROL Inhaler (OR & NICU) 1 puff IH Q8HR PRN #1 inha 01/26/19 Unknown Rx [ProAir HFA Inhaler] Acetaminophen [Acetaminophen TAB] 325 mg PO Q4H PRN tablet 01/26/19 Unknown Rx Ipratropium/Albuterol Sulfate 1 ampul IH Q4H PRN #1 ampul.neb 01/26/19 Unknown Rx [DUONEB *Not for PRN Use*] Montelukast [Singulair] 10 mg PO HS #30 tablet 01/26/19 Unknown Rx Pantoprazole [Protonix TAB] 40 mg PO QDAY #30 tablet.dr 01/26/19 Unknown Rx cefUROXime [Ceftin] 500 mg PO BID #10 tablet 01/26/19 Unknown Rx methylPREDNISolone [Medrol 4MG 1 dose PO DAILY #1 tab.ds.pk 01/26/19 Unknown Rx DOSEPAK (21 tabs)] Amoxicillin/Potassium Clav 1 each PO Q12H #20 tablet 04/29/19 Unknown Rx [Augmentin 875-125 Tablet] Benzonatate [Tessalon Perles] 100 mg PO Q8HR #30 capsule 04/29/19 Unknown Rx Cetirizine HCl [Zyrtec 10mg tab] 10 mg PO DAILY #30 tablet 04/29/19 Unknown Rx Prednisone [predniSONE 10 mg 10 mg PO .TAPER #21 tab.ds.pk 04/29/19 Unknown Rx (6-Day Pack, 21 Tabs)] amLODIPine [Norvasc] 5 mg PO DAILY #30 tablet 04/29/19 Unknown Rx Amoxicillin [Amoxicillin TAB] 875 mg PO TID 5 Days #15 tablet 05/26/19 Unknown Rx Benzonatate [Tessalon Perles] 100 mg PO Q8HR PRN #20 capsule 05/26/19 Unknown Rx predniSONE [Deltasone] 50 mg PO QDAY #5 tab 05/26/19 Unknown Rx ED Physical Exam - General Limitations: No Limitations General appearance: alert, in no apparent distress - Head Head exam: Present: atraumatic, normocephalic - Eye Eye exam: Present: normal appearance, PERRL, EOMI - ENT ENT exam: Present: mucous membranes moist, other (right maxillary, frontal sinus tenderness) - Neck Neck exam: Present: normal inspection, full ROM - Respiratory Respiratory exam: Present: normal lung sounds bilaterally. Absent: respiratory distress, wheezes, rales, rhonchi - Cardiovascular Cardiovascular Exam: Present: regular rate, normal rhythm - GI/Abdominal GI/Abdominal exam: Absent: distended - Extremities Exam Extremities exam: Present: normal inspection - Neurological Exam Neurological exam: Present: alert, oriented X3 - Psychiatric Psychiatric exam: Present: normal affect, normal mood - Skin Skin exam: Present: warm, dry, intact, normal color ED Course Vital Signs 05/26/19 05/26/19 19:06 20:18 Temperature 98.6 F 98.6 F Pulse Rate 91 H 91 H Respiratory 18 18 Rate Blood Pressure 156/87 Blood Pressure 156/87 [Right] O2 Sat by Pulse 95 95 Oximetry ED Medical Decision Making - Medical Decision Making Patient had no respiratory distress. Vital signs are normal except for mildly elevated blood pressure. Patient reports these symptoms have been arm for the last year. Reports she has never been evaluated by an ear nose and throat physician. Patient reported nonproductive cough and subjective fevers, however patient refuses chest x-ray at this time. Patient requests steroids and antibiotics for treatment of her sinus infection. ENT follow-up information given. Return precautions given. - Differential Diagnosis sinusitis, pneumonia, bronchitis Critical care attestation.: If time is entered above; I have spent that time in minutes in the direct care of this critically ill patient, excluding procedure time. ED Disposition Clinical Impression: URI (upper respiratory infection), Sinusitis Disposition: - TO HOME OR SELFCARE Is pt being admited?: No Condition: Stable Instructions: Sinusitis (ED) Prescriptions: Amoxicillin [Amoxicillin TAB] 875 mg PO TID 5 Days #15 tablet predniSONE [Deltasone] 50 mg PO QDAY #5 tab Benzonatate [Tessalon Perles] 100 mg PO Q8HR PRN #20 capsule PRN Reason: Cough Referrals: SOBEIDA PARKER MD [Staff Physician] - 3-5 Days Forms: Accompanied Note, Work/School Release Form(ED) Time of Disposition: 21:21
== END 2019-05-26 22:05 | disposition home or self-care (01) ==
LOC: ED 18:41
DX: J06.9 Acute upper respiratory infection, unspecified (principal); J32.0 Chronic maxillary sinusitis; J32.1 Chronic frontal sinusitis; I10 Essential (primary) hypertension; Z79.899 Other long term (current) drug therapy; Z91.018 Allergy to other foods
CPT/HCPCS: 99282